=== PATIENT | male | born 1990 | race Caucasian/White ===

== ENCOUNTER 2017-01-20 12:33 | Emergency (ER) | payer SELFPAY ==
--- NOTE | 2017-01-20 13:05 | RAD ---
RIGHT ANKLE THREE VIEWS: Indication: Right ankle pain for three weeks. FINDINGS: Mortise is intact. No fracture or dislocation. IMPRESSION: No acute osseous abnormality of the right ankle. POS: CET
--- NOTE | 2017-01-20 16:42 | MRI ---
MRI OF THE RIGHT ANKLE WITHOUT CONTRAST 01/20/17 INDICATION: Right ankle injury while playing basketball three weeks ago. COMPARISON: Radiograph of the right ankle dated 01/20/17. FINDINGS: There is a full thickness tear of the Achilles tendon, 7.5 cm from the level of its insertion. The te ndon gap measures 2.4 cm. The plantaris tendon is still intact. The peroneal tendons and medial flexo r tendons are intact. The extensor tendons are intact. The ATFL, PTFL, and calcaneofibular ligaments are intact. The deltoid ligament and syndesmotic ligaments are intact. Plantar fascia is normal appea ring. Sinus tarsi has a normal signal intensity. Lisfranc ligament is intact. No osteochondral lesion is seen involving the talar dome. IMPRESSION: Full thickness Achilles tendon disruption. Orthopedic consultation is recommended. POS: [facility]
== END 2017-01-20 17:03 | disposition home or self-care (01) ==
LOC: ERS 12:33
DX: S86.011A Strain of right Achilles tendon, initial encounter (principal); W18.30XA Fall on same level, unspecified, initial encounter; Y93.67 Activity, basketball
CPT/HCPCS: 29515